=== PATIENT | female | born 1990 | race Caucasian/White ===

== ENCOUNTER 2020-10-14 23:06 | Inpatient (IN) | payer OTHER ==
[~2020-10-14] VITALS: Ht 152.4 cm; Wt 73.5 kg
[~2020-10-14 23:06] MED LIST: COLACE 100MG C100 MG PO; GLUCOPHAGE 500500 MG PO; IBUPROFEN600 MG PO; LOPRESSOR100 MG PO; LORTAB 5-325 M1 EACH PO; PRENATAL COMPL1 EACH PO
[2020-10-15 01:54] LABS: HEMOGLOBIN 8.6 gm/dl (12.3-15.3); RED BLOOD COUNT 4.05 M/UL (4.00-5.10); WHITE BLOOD COUNT 9.3 K/UL (4.5-11.0)
[2020-10-15 02:21] LABS: BUN/CREATININE RATIO 16 (0-10)
[2020-10-15] MEDS ORDERED: HYDROCODON-ACE1 EAC4 PO (14:58)
[2020-10-15] MEDS ORDERED: DOCUSATE SODIU100 MG PO (14:58)
[2020-10-15] MEDS ORDERED: IBUPROFEN600 MG PO (14:58)
[2020-10-16 06:56] LABS: HEMOGLOBIN 8.5 gm/dl (12.3-15.3)
[2020-10-17] MEDS ORDERED: LOPRESSOR 50 MG50 MG PO (11:37)
[2020-10-17] MEDS ORDERED: FERRO-TIME325 MG PO (11:37)
== END 2020-10-17 15:02 | disposition home or self-care (01) | DRG 788 ==
LOC: GENOP 23:06 → OB 10-15 09:03
PROVIDERS: Obstetrics & Gynecology; ADMIT Obstetrics & Gynecology
PROC: 10D00Z1 Extraction of Products of Conception, Low, Open Approach (ICD-10-PCS; principal; 2020-10-15 11:35)
DX: O13.4 Gestational [pregnancy-induced] hypertension without significant proteinuria, complicating childbirth (principal); Z3A.37 37 weeks gestation of pregnancy; Z37.0 Single live birth; O34.211 Maternal care for low transverse scar from previous cesarean delivery; N85.8 Other specified noninflammatory disorders of uterus; O69.89X0 Labor and delivery complicated by other cord complications, not applicable or unspecified; Z20.822 Contact with and (suspected) exposure to COVID-19; Z28.21 Immunization not carried out because of patient refusal
CPT/HCPCS: 36415; 80053; 82570; 82800; 83615; 84156; 84550; 85014; 85018; 85025; C9113; J0690; J2274; J2405; J2590; J3010; J7120; U0002

== ENCOUNTER 2021-01-19 13:16 | Emergency (ER) | payer OTHER ==
[~2021-01-19 13:16] MED LIST changes: +DOCUSATE SODIU100 MG PO; +FERRO-TIME325 MG PO; +HYDROCODON-ACE1 EAC4 PO; +LOPRESSOR 50 MG50 MG PO
[2021-01-19] MEDS ORDERED: AUGMENTIN 875-1 EACH PO (13:54)
[2021-01-19] MEDS ORDERED: IBUPROFEN600 MG PO (14:00)
== END 2021-01-19 15:03 | disposition home or self-care (01) ==
LOC: ER1 13:16
DX: S91.351A Open bite, right foot, initial encounter (principal); W55.01XA Bitten by cat, initial encounter; Z23 Encounter for immunization
CPT/HCPCS: 90471; 90715; 99283; J1335